=== PATIENT | female | born 1960 | race Caucasian/White ===

== ENCOUNTER 2019-05-05 10:01 | Emergency (ER) | payer BC, OTHER ==
--- OUTSIDE RECORDS SUMMARY | 2019-05-05 11:16 | XMS REPORT | Summary of Care ---
:1960 Author Organization [facility] Address [address] [address] Care Team Providers Name Role Phone Candice Lamar MD Primary Care Provider Reason for Referral MRI/CAT/PET Scan (Routine) Status Reason Specialty Diagnoses / Referred By Contact Referred To Procedures Contact Authorized Diagnoses Vaginal bleeding, abnormal Postmenopausal bleeding Uterine leiomyoma, unspecified location [place], Procedures US PELVIC COMPLETE WITH EV PROBE [place] [address] Reason for Visit Reason Comments Shoulder Pain radiates to neck and down chest Hematuria Encounter Details Date Type Department Care Team Description 05/05/2019 Office Visit [facility] [place], Precordial pain (Primary Dx); Practice Candice Sibley MD Hematuria, unspecified type; [address] [place] [address] Shortness of breath; [place], [place] [id number] [place] [address] Orthopnea; [phone] Postmenopausal bleeding; Uterine leiomyoma, unspecified location; Vaginal bleeding, abnormal Allergies Active Allergy Reactions Severity Noted Date Comments Tape: Silk Or Adhesive Rash Medium 05/11/2014 fur clipper leads Sulfamethoxazole Rash Medium 11/11/2013 W/Trimethoprim Penicillins Unknown Reaction 09/28/2007 Years ago,doesn't remember documented as of this encounter (statuses as of 05/05/2019) Medications Medication Sig Dispensed Refills Start End Date Status Date Ibuprofen (ADVIL PO) Take by mouth 0 Active NEEDED. Cholecalciferol Take 1 Tab by 0 Active (VITAMIN D) 2000 mouth DAILY. UNITS Oral Tab Multiple Take 1 Cap by 0 Active Vitamins-Minerals mouth DAILY. (VISION FORMULA/LUTEIN) Oral Tab diclofenac Take 1 Tab by 60 Tab 1 Active (VOLTAREN) 75 MG mouth TWICE 9 Oral Tab EC DAILY. lisinopril take 1 tablet 30 Tab 5 Active (PRINIVIL, ZESTRIL) by mouth once 9 5 MG Oral Tab daily Spacer/Aero Chamber 1 Units by 1 Units 1 05/05/20 Discontinued Mouthpiece Does not Does not apply 04 01 (Therapy apply route Completed) MiscIndications: DIRECTED. Use Wheezing with albuterol MDI Q4 hrs PRN albuterol HFA Take 2 Puffs 1 Each 1 05/05/20 Discontinued (VENTOLIN) 108 (90 by inhalation 9 (Therapy Base) MCG/ACT EVERY FOUR Completed) Inhalation Aero HOURS SolnIndications: NEEDED Wheezing (cough/wheezin g). documented as of this encounter (statuses as of 05/05/2019) Active Problems Problem Noted Date Dyslipidemia 03/28/2016 Elevated hemoglobin A1c 11/14/2014 BMI 38.0-38.9,adult 08/03/2012 Pulmonary nodule 11/30/2009 Essential hypertension 01/20/2008 Diffuse cystic mastopathy 07/25/1998 documented as of this encounter (statuses as of 05/05/2019) Resolved Problems Problem Noted Date Resolved Date Chronic renal disease, stage III 04/28/2014 11/06/2016 Lung anomaly 11/06/2016 Overview: SERGIO lung lesion, f/u Dr. Grayson. documented as of this encounter (statuses as of 05/05/2019) Immunizations Name Administration Dates Next Due Celestone (Bethamethesone) 6mg 05/17/2014 Influenza (IM) Preservative Free 03/28/2018, 03/28/2017 MMR VACCINE 03/04/2016 TDAP Vaccine 01/29/2011 documented as of this encounter Social History Tobacco Use Types Packs/Day Years Used Date Never Smoker Smokeless Tobacco: Never Used Comments: Mild passive smoking - smokes. Alcohol Use Drinks/Week oz/Week Comments Yes 0.0 2-3 beers/month Sex Assigned at Date Recorded Not on file Job Start Date Occupation Industry Not on file Not on file Not on file Travel History Travel Start Travel End No recent travel history available. documented as of this encounter Last Filed Vital Signs Vital Sign Reading Time Taken Comments Blood Pressure 122/80 05/05/2019 8:45 AM EDT Pulse 72 05/05/2019 8:45 AM EDT Temperature 37.2 05/05/2019 8:45 AM EDT C (99 F) Respiratory Rate - - Oxygen Saturation 99% 05/05/2019 8:45 AM EDT Inhaled Oxygen Concentration - - Weight 92.5 kg (204 lb) 05/05/2019 8:45 AM EDT Height 152.4 cm (5') 05/05/2019 8:45 AM EDT Body Mass Index 39.84 05/05/2019 8:45 AM EDT documented in this encounter Patient Instructions Patient InstructionsCandice Lamar MD - 05/05/2019 8:40 AM EDTER evaluation is recommended now. You refuse ambulance transport, deny chest pain now, and are driving yourself. You may be admitted for cardiac testing. I have called ahead to the ER to notify them you are coming Follow up with me after discharge for follow up and further evaluation of your other issues discussed today documented in this encounter Progress Notes Candice Lamar MD - 05/05/2019 8:40 AM EDT Nursing Notes: Tamika Agarwal LPN 05/05/2019 9:00 AM Signed Chief Complaint Patient presents with Shoulder Pain radiates to neck and down chest Hematuria Also c/o pressure/nausea feeling in upper chest/neck area after eating Chief Complaint: Tamika Olson is a 58-y.o. female who presents for shoulder pain that radiates to her neck and chest yesterday. She has hypertension and prediabetes, FH CAD History of Present Illness/ROS: Patient presents complaining of pain yesterday described as an ache in her left shoulder, fingers inboth hands tingled. It is not positional. No known shoulder injury. It does not hurt to sleep on that shoulder. Pain radiated to her left posterior neck and anterior chest. It lasted several minutes or more. Patient also reports upper chest pressure and nausea whenever she eats x several weeks. In addition at night she has problems breathing due to anterior chest pressure: has to sit up at night: Feels like a pressure in her chest. Has nausea with it. Short of breath going up stairs but not walking. Denies dyspnea with exertion or chest pain with exertion. Denies heartburn but has chest discomfort after eating. In addition she complains of: She has had some hematuria yesterday, a few specks of blood on her underwear. She suspect it may be vaginal. No fever or chills She did See obstetrics gynecology md oncology September 2017 for degenerating fibroids and bleeding and declined surgery, chose monitoring In April she had an ultrasound with slight endometrial thinckening for which I referred her to obstetrics gynecology md. Note from October from obstetrics gynecology md says the could not reach her. I last saw her December 01, 2018 for CAP, treatment with azithromycin. She reports her cough from November has never fully cleared. No hemoptysis. Review of Systems - General ROS: negative for - chills or fever ENT ROS: negative for - nasal congestion Respiratory ROS: positive for - shortness of breath when lying down, and dry cough since November negative for - hemoptysis Cardiovascular ROS: positive for - chest pain at night lying, yesterday after shoulder pain. No chest pain now/today. negative for - dyspnea on exertion or loss of consciousness Gastrointestinal ROS: no abdominal pain, change in bowel habits, or black or bloody stools Genito-Urinary ROS: positive for - hematuria negative for - dysuria Musculoskeletal ROS: left shoulder ached yesterday, suddenly, was not positional , was anterior left shoulder and radiated to her neck and anterior chest, resolved on its own. No pain today. Neurological ROS: had some tingling in her fingers bilateral hands, yesterday when she had shoulder pain Lab Results Component Value Date GLYCO 6.0 (H) 08/25/2018 GLYCO 5.7 11/06/2016 Office Visit on 08/25/2018 Component Date Value Ref Range Status Results 08/25/2018 SEE COMMENT Final Comment: GYNECOLOGICAL CYTOLOGY REPORT THINPREP TIS AND HPV mRNA E6/E7 Thinprep-TIS REPORT STATUS: FINAL CLINICAL INFORMATION: Information not provided LMP: AGE 55 SLIDES / SOURCE: 1 / Cervix, Endocervix STATEMENT OF ADEQUACY: Satisfactory for evaluation. Endocervical/transformation zone component absent. INTERPRETATION/RESULT: Negative for intraepithelial lesion or malignancy. Reactive cellular changes associated with repair. COMMENT: This Pap test has been evaluated with computer assisted technology. MANAGER PROVIDER RELATIONS: DEBORAH FLOYD(ASCP) For informational Purposes: All cytology specimens are processed and screened at [facility]. [address] [place] [id number] PATHOLOGIST: Asif Child MD, Board Certified in Anatomic Pathology and Cytopathology (electronic signature) For questions regarding this report call Anatomic Pathology at [phone] Asif Child MD, Line Maintenance [facility] [place], [place] The Pap is a screening test for cervical cancer. It is not a diagnostic test and is subject to false negative and false positive results. It is most reliable when a satisfactory sample, regularly obtained, is submitted with relevant clinical findings and history, and when the Pap result is evaluated along with historic and current clinical information. HPV mRNA E6/E7 HPV mRNA E6E7 Not Detected REFERENCE RANGE: NOT DETECTED This test was performed using the APTIMA HPV Assay ([employer] This assay detects E6/E7 viral messenger RNA (mRNA) from 14 high-risk HPV types (16,18,31,33,35,39,45,51,52,56,58,59,66,68). Cholesterol 08/25/2018 183 <200 mg/dl Final HDL Cholesterol 08/25/2018 44* >50 mg/dl Final Triglycerides 08/25/2018 160* <150 mg/dl Final LDL Cholesterol 08/25/2018 107* <100 MG/DL Final Cholesterol / HDL Ratio 08/25/2018 4.2 RATIO Final LDL / HDL Ratio 08/25/2018 2.4 Final Non-HDL Cholesterol 08/25/2018 139* 0 - 130 MG/DL Final Glycohemoglobin A1C 08/25/2018 6.0* <=5.6 % Final Normal*: <=5.6% Pre Diabetes* Risk: 5.7-6.4% Diabetes* Risk: >=6.5% Glycemic Goals for Adult Diabetes*: <7.0% *(Adult Ranges)[place] [employer], Standards of Medical Care in Diabetes, 2018 Sodium 08/25/2018 138 134 - 145 mmol/L Final Potassium 08/25/2018 4.7 3.5 - 5.1 mmol/L Final Chloride 08/25/2018 102 98 - 107 mmol/L Final CO2 08/25/2018 30 22 - 30 mmol/L Final Calcium 08/25/2018 10.2* 8.3 - 10.1 mg/dl Final Albumin 08/25/2018 4.1 3.5 - 5.0 g/dl Final BUN 08/25/2018 18* 7 - 17 mg/dl Final Creatinine 08/25/2018 0.8 0.7 - 1.2 mg/dl Final Glucose 08/25/2018 98 70 - 99 mg/dl Final Total Protein 08/25/2018 7.7 6.3 - 8.2 g/dl Final Total Bilirubin 08/25/2018 0.3 0.0 - 1.1 MG/DL Final AST 08/25/2018 26 15 - 46 U/L Final ALT 08/25/2018 31 9 - 52 U/L Final Alkaline Phosphatase 08/25/2018 55 40 - 150 U/L Final eGFR 08/25/2018 >60 See Interpretation Below ml/min/1.73ml Sq Final Estimated GFR Interpretation: Above 60ml/min/1.73m2 = Normal Renal Function 30-59 ml/min/1.73m2 = Stage 3 Chronic Kidney Disease 15-29 ml/min/1.73m2 = Stage 4 Chronic Kidney Disease Less than 15 ml/min/1.73m2 = Stage 5 Chronic Kidney Disease The GFR value is calculated using the Modification of Diet in Renal Disease ( MDRD) Study Equation which can be found at: https://www.kidney.org/content/bkze-ssdjh-uhyjwzzr BUN/Creatinine Ratio 08/25/2018 23* 6 - 22 RATIO Final Anion Gap 08/25/2018 6 3 - 11 mmol/L Final A/G Ratio 08/25/2018 1.1 0.8 - 2.0 ratio Final Past Medical History: Diagnosis Date Chronic kidney disease Low GFR once, normal since Diffuse cystic mastopathy 07/25/98 Hypertension 01/20/2008 Lung anomaly SERGIO lung lesion, f/u Dr. Owen. 11/2009- benign - no further follow up indicated. KORTNEY (obstructive sleep apnea) sleep study 09/2014 Postmenopausal , first Past Surgical History: Procedure Laterality Date CARPAL TUNNEL RELEASE 1989 CHOLECYSTECTOMY 1989 COLONOSCOPY 11/2016 negative Current Outpatient Medications: Cholecalciferol (VITAMIN D) 2000 UNITS Oral Tab, Take 1 Tab by mouth DAILY., Disp: , Rfl: diclofenac (VOLTAREN) 75 MG Oral Tab EC, Take 1 Tab by mouth TWICE DAILY., Disp: 60 Tab, Rfl: 1 Ibuprofen (ADVIL PO), Take by mouth NEEDED., Disp: , Rfl: lisinopril (PRINIVIL, ZESTRIL) 5 MG Oral Tab, take 1 tablet by mouth once daily, Disp: 30 Tab, Rfl: 5 Multiple Vitamins-Minerals (VISION FORMULA/LUTEIN) Oral Tab, Take 1 Cap by mouth DAILY., Disp: , Rfl: Allergies Allergen Reactions Adhesive [Tape: Silk Or Adhesive] Rash fur clipper leads Bactrim [Sulfamethoxazole W/Trimethoprim] Rash Pcn [Penicillins] Unknown Reaction Years ago,doesn't remember Social History Socioeconomic History Marital status: Spouse name: Not on file Number of children: Not on file Years of education: Not on file Highest education level: Not on file Occupational History Not on file Social Needs Financial resource strain: Not on file Food insecurity: Worry: Not on file Inability: Not on file Transportation needs: Medical: Not on file Non-medical: Not on file Tobacco Use Smoking status: Never Smoker Smokeless tobacco: Never Used Tobacco comment: Mild passive smoking - smokes. Substance and Sexual Activity Alcohol use: Yes Alcohol/week: 0.0 standard drinks Comment: 2-3 beers/month Drug use: No Sexual activity: Yes Partners: Male Lifestyle Physical activity: Days per week: Not on file Minutes per session: Not on file Stress: Not on file Relationships Social connections: Talks on phone: Not on file Gets together: Not on file Attends jain service: Not on file Active member of club or organization: Not on file Attends meetings of clubs or organizations: Not on file Relationship status: Not on file Intimate partner violence: Fear of current or ex partner: Not on file Emotionally abused: Not on file Physically abused: Not on file Forced sexual activity: Not on file Other Topics Concern Back Care Not Asked Bike Helmet Not Asked Blood Transfusions Not Asked Caffeine Concern Not Asked Exercise Yes Comment: yoga Hobby Hazards Not Asked International Travel Not Asked Service Not Asked Occupational Exposure Not Asked Seat Belt Not Asked Self-Exams Not Asked Sleep Concern Yes Special Diet No Stress Concern Not Asked Weight Concern Yes Social History Narrative Employed- [employer] Lives with , college son Pets: dogs,cat, bird,goats Family History Problem Relation Age of Onset Heart Mother 57 Hypertension Mother High Cholesterol Mother Diabetes Mother Stroke Mother Multiple Sclerosis Mother Heart Father Hypertension Father High Cholesterol Father No Known Problems Sister No Known Problems Son Colon Cancer Maternal Grandfather Cancer Maternal Grandfather colon cancer Diabetes Maternal Grandmother Hypertension Paternal Grandfather Stroke Paternal Grandfather Cancer Paternal Grandmother multiple myeloma PHYSICAL EXAMINATION: BP 122/80 (BP Location: Right arm, Patient Position: Sitting) | Pulse 72 | Temp 99 F (37.2 C) (Tympanic) | Ht 5' (1.524 m) | Wt 204 lb (92.5 kg) | LMP 10/27/2013 | SpO2 99% | ? No | BMI 39.84 kg/m Physical Examination: General appearance - alert, well appearing, and in no distress Mental status - alert, oriented to person, place, and time, normal mood, behavior, speech, dress, motor activity, and thought processes Eyes - pupils equal and reactive, extraocular eye movements intact, sclera anicteric Neck - supple, no cervical or supraclavicular adenopathy, carotids upstroke normal bilaterally, no bruits, thyroid exam: thyroid is normal in size without nodules or tenderness, no neck masses palpated. Chest/Lungs - right lower lobe crackles, otherwise good aeration, no wheezing, no chest wall pain. Heart - normal rate, regular rhythm, normal S1, S2, no murmurs, rubs, clicks or gallops Abdomen - soft, non tender on palpation, nondistended, no masses or hepatosplenomegaly, bowel soundsnormal, normal to percussion, no guarding or rebound. No costervertebral angle tenderness Neurological - alert, oriented, normal speech, no gross focal findings or movement disorder noted Extremities - dorsalis pedis pulses normal, no pedal edema, no clubbing or cyanosis No shoulder pain, FROM ASSESSMENT/PLAN: ICD-9-CM ICD-10-CM 1. Precordial pain 786.51 R07.2 AMBULATORY 12 LEAD EKG (GLOBAL) 2. Hematuria, unspecified type 599.70 R31.9 URINE DIP MANUAL (AMB POCT) URINE DIP MANUAL (AMB POCT) 3. Shortness of breath 786.05 R06.02 AMBULATORY 12 LEAD EKG (GLOBAL) 4. Orthopnea 786.02 R06.01 AMBULATORY 12 LEAD EKG (GLOBAL) 5. Postmenopausal bleeding 627.1 N95.0 US PELVIC COMPLETE WITH EV PROBE 6. Uterine leiomyoma, unspecified location 218.9 D25.9 US PELVIC COMPLETE WITH EV PROBE 7. Vaginal bleeding, abnormal 623.8 N93.9 US PELVIC COMPLETE WITH EV PROBE pulmonary embolism Wells score is 0 ASCVD risk is 3.6% Cardiac risk factors FH is sig for CAD and strent in her mother at this age, father also had CAD She has never smoked LDL cholesterol is 107, HDL 44 ECG: NSR, rate 66, old septal infarct similar to ECG in 2014 but T wave is biphasic in V1, more upright in V2, perhaps [address] elevation in V5, subtle changes. No significant ST depressions or elevations, no new q waves. Symptoms are concerning for angina over the last few weeks. She denies chest pain now but did have chest pain yesterday. I recommend ER evaluation for quicker work up with cardiac enzymes, chest xray, ECG, probable admission and cardiac testing. Ambulance strongly recommended. She absolutely refuses transport by ambulance and is driving to the ER. She has no other hi lo driver. She again declines ambulance, denies symptoms today I called and spoke to Dr Lopez, ER physician and notified emergency room patient is coming in. She also has right lower lobe crackles and cough, will need chest xray. Regarding vaginal spotting, she will need a UA and pelvic ultrasound after cardiac status is clarified. She admits she never saw the longwall shearer operator after I referred her last April, did talk to them in August and November of this year, but never went in for appointment. Author: Candice Lamar MD 05/05/2019 09:48 documented in this encounter Plan of Treatment Name Type Priority Associated Diagnoses Order Schedule URINE DIP MANUAL (AMB POCT Routine Hematuria, unspecified Ordered: 2018 POCT) type AMBULATORY 12 LEAD EKG EKG Routine Precordial pain Ordered: 05/05/2019 (GLOBAL) Shortness of breath Orthopnea URINE DIP MANUAL (AMB POCT Routine Hematuria, unspecified Ordered: 2018 POCT) type US PELVIC COMPLETE WITH Imaging Routine Vaginal bleeding, Expected: 2018, EV PROBE abnormal Expires: 05/04/2020 Postmenopausal bleeding Uterine leiomyoma, unspecified location Health Maintenance Due Date Last Done Comments ZOSTER IMMUNIZATION SERIES 2011 (1 of 2) INFLUENZA VACCINE (#1) 2019 03/28/2018, 03/28/2017 DIABETES SCREENING 08/25/2019 08/25/2018, 08/25/2018, 08/14/2017, Additional history exists LIPID DISORDER SCREENING 08/25/2019 08/25/2018, 11/06/2016, 02/21/2016, Additional history exists DEPRESSION SCREENING 12/02/2019 12/01/2018, 03/28/2017 MAMMOGRAM (SCREENING) 02/04/2020 02/03/2019, 04/23/2017, 04/28/2014, Additional history exists PAP SMEAR 08/25/2021 08/25/2018, 08/01/2015, 08/01/2015, Additional history exists COLONOSCOPY SCREENING 12/11/2026 12/11/2016, 11/11/2013 (Declined) HPV IMMUNIZATION SERIES Aged Out No longer eligible based on patient's age to complete this topic MENINGOCOCCAL VACCINE IMM Aged Out No longer eligible based on patient's age to complete this topic PNEUMOCOCCAL 0-64 YRS Aged Out No longer eligible based on patient's age to complete this topic documented as of this encounter Goals Goal Patient Goal Associated Recent Patient-Stated? Author Type Problems Progress Blood Pressure Blood Pressure 122/80 No Ness, < 140/90 (05/05/2019 Maldonado 8:45 AM EDT) MD Angel Note: This is an individualized treatment (blood pressure) goal for Tamika Olson: Displayed above (on the left) is your goal for blood pressure control. Your most recent blood pressure is also shown above, on the right. You should try to achieve blood pressures that are lower than your goal listed above (on the left). Depression screen Depression 8 (03/28/2017 8:01 AM No Candice Lamar (PHQ-9) total score < 5 EDT) MD Toñito Note: This is an individualized treatment (depression) goal for Tamika Olson: Displayed above is your goal for a depression screening (PHQ-9) score that would indicate good control of your depression. Weight loss vs. 18 mo Lifestyle 1.2 (05/05/2019 8:45 AM No Maldonado Ness max (lbs) >= 10 EDT) MD Angel Note: This is an individualized lifestyle goal for Tamika Olson: Your body mass index (BMI) is more than 30. You should lose weight. A reasonable starting goal is to lose 10 pounds. Displayed above is how many pounds you have lost thus far towards your 10 pound weight loss goal. Keep a regular sleep schedule Lifestyle No Candice Lamar MD Note: This is an individualized lifestyle goal for Tamika Olson: Please maintain a regular sleep schedule. This may help with some symptoms of depression. Take all prescribed medications as Self-management No Maldonado Ness MD directed Note: This is an individualized self-management goal for Tamika Olson: Please take all prescribed medications as directed. 1. Do not skip doses. If you cannot afford your medications, talk with your doctor. 2. Use a pill reminder system such as a pill box if needed. Your pharmacist can help you with this. 3. Contact your Pharmacy 5 days before your medication runs out. If you cannot take your medications for any reasons, talk with your doctor. 4. Please bring all of your medication bottles and inhalers (or a list of all your medications/inhalers) with you to every visit. Potential barriers to meeting all of your care plan goals will continue to be addressed on an ongoing basis. documented as of this encounter Results Not on filedocumented in this encounter Visit Diagnoses Diagnosis Precordial pain - Primary Hematuria, unspecified type Shortness of breath Orthopnea Postmenopausal bleeding Uterine leiomyoma, unspecified location Vaginal bleeding, abnormal Other specified noninflammatory disorder of vagina documented in this encounter Guarantor Name Account Type Relation to Date of Phone Billing Patient Address Tamika Olson Personal/Family 1960 [phone] (Home) [facility] [phone] [place], [place] (Work) [id number] documented as of this encounter Advance Directives Type Date Recorded Patient Lowerator Operator Explanation Advance Directives 12/23/2016 11:16 AM Health Care Proxy"
[2019-05-05 11:23] LABS: ABS Eosinophils 0.2 10^3/ul (0-0.6); ABS Lymphocytes 2.3 10^3/ul (1.0-4.8); ABS Monocytes 0.5 10^3/ul (0-0.8); ABS Neutrophils 2.7 10^3/ul (1.5-7.7); Eosinophil % 3.7 %; Hematocrit 41 % (35-47); Hemoglobin 14.1 g/dL (12.0-16.0); Lymphocyte % 40.1 %; Mean Corpuscular HGB Conc 35 g/dL (31-36); Mean Corpuscular Hemoglobin 30 pg (27-31); Mean Corpuscular Volume 86 fL (80-97); Mean Platelet Volume 8.2 fL (7.4-10.4); Platelet Count 212 10^3/uL (150-450); Red Blood Count 4.78 10^6 /uL (3.70-4.87); Red Cell Distribution Width 13 % (10-15); White Blood Count 5.6 10^3/uL (3.5-10.8)
[2019-05-05] MEDS: Al Hydrox/Mg Hydrox/Simet LIQ* 30 ML UDC PO ONE (11:28)
[2019-05-05 11:30] LABS: INR 1.08 (0.82-1.09)
[2019-05-05 11:40] LABS: Albumin 4.2 g/dL (3.2-5.2); Albumin/Globulin Ratio 1.4 (1-3); BUN/Creatinine Ratio 25.6 (8-20); Calcium 9.5 mg/dL (8.6-10.3); EGFR African American 82.3 (>60); Globulin 2.9 g/dL (2-4); Total Bilirubin 0.4 mg/dL (0.2-1.0); Total Protein 7.1 g/dL (6.4-8.9)
[2019-05-05 13:33] VITALS: BP 151/86
--- NOTE | 2019-05-05 16:30 | ED ---
HPI Cardiac - HPI Summary HPI Summary: This patient is a 58-year-old otherwise healthy female presenting to the ED with upper chest, nausea and neck pain worse with lying supine/flat, better with sitting upright. She states symptoms have been present times approximately one week. She was able to call her doctor, but decided to come to the ED. She denies any cardiac history other than mild hypertension in which she takes lisinopril. She denies any history of anxiety, excessive caffeine use, no alcohol use and is a nonsmoker. She denies any history of GERD. Symptoms are described as a ache and a pressure onto the upper portion of her chest, radiating up into her neck, without radiation to her back. She denies any associated shortness of breath. - History of Current Complaint Chief Complaint: EDNeckComplaint Stated Complaint: NECK PAIN , SHOULDER PAIN Time Seen by Provider: 05/05/19 10:25 Hx Obtained From: Patient Onset/Duration: Started Hours Ago Timing: Constant Initial Severity: Moderate Current Severity: Moderate Pain Intensity: 3 Pain Scale Used: 0-10 Numeric Chest Pain Location: Diffuse Chest Pain Radiates: No Aggravating Factor(s): Nothing Alleviating Factor(s): Nothing Associated Signs and Symptoms: Positive: Chest Pain, Nausea. Negative: Vision Changes, Anxiety, Recent Stress, Headaches, Numbness, Tingling, Fever, Chills, Vomiting - Risk Factors Pulmonary Embolism Risk Factors: Negative Cardiac Risk Factors: Negative Atrial Fibrillation Risk Factors: Negative TAD Risk Factors: Negative - Allergy/Home Medications Allergies/Adverse Reactions: Allergies Allergy/AdvReac Type Severity Reaction Status Date / Time Penicillins Allergy Unknown Verified 05/05/19 10:08 Reaction Details sulfamethoxazole Allergy Rash Verified 05/05/19 10:08 [From Bactrim] trimethoprim [From Bactrim] Allergy Rash Verified 05/05/19 10:08 Home Medications: Home Medications Lisinopril TAB* [Prinivil TAB*] 5 mg PO DAILY 05/05/19 [History Confirmed ] PMH/Surg Hx/FS Hx/Imm Hx Previously Healthy: Yes - Immunization History Hx Pertussis Vaccination: No Immunizations Up to Date: Yes Infectious Disease History: No Infectious Disease History: Denies: Traveled Outside the [place] in Last 30 Days - Social History Occupation: Employed Full-time Lives: With Family Alcohol Use: None Hx Substance Use: No Substance Use Type: Reports: None Hx Tobacco Use: No Smoking Status (MU): Never Smoked Tobacco Review of Systems Constitutional: Negative Negative: Fever, Chills, Skin Diaphoresis Negative: Palpitations, Chest Pain Negative: Shortness Of Breath, Cough Genitourinary: Negative Positive: no symptoms reported, see HPI Negative: Arthralgia, Myalgia Negative: Rash, Bruising Neurological: Negative All Other Systems Reviewed And Are Negative: Yes Physical Exam Triage Information Reviewed: Yes Vital Signs On Initial Exam: Initial Vitals Temp Pulse Resp BP Pulse Ox 97.4 F 65 16 151/90 99 05/05/19 10:03 05/05/19 10:03 05/05/19 10:03 05/05/19 10:03 05/05/19 10:03 Vital Signs Reviewed: Yes Appearance: Positive: Well-Appearing, Well-Nourished Skin: Positive: Warm, Skin Color Reflects Adequate Perfusion Head/Face: Positive: Normal Head/Face Inspection Eyes: Positive: EOMI, SUNIL, Conjunctiva Clear Neck: Positive: Supple, No Lymphadenopathy Respiratory/Lung Sounds: Positive: Clear to Auscultation, Breath Sounds Present Cardiovascular: Positive: RRR, Pulses are Symmetrical in both Upper and Lower Extremities Musculoskeletal: Positive: Strength/ROM Intact Neurological: Positive: Sensory/Motor Intact, Alert, Oriented to Person Place, Time, Speech Normal Psychiatric: Positive: Normal, Affect/Mood Appropriate Procedures - Sedation Patient Received Moderate/Deep Sedation with Procedure: No Diagnostics - Vital Signs Vital Signs Temp Pulse Resp BP Pulse Ox 05/05/19 13:31 98.2 F 76 16 151/86 97 05/05/19 13:00 21 05/05/19 12:00 13 05/05/19 11:23 60 12 141/96 99 05/05/19 11:11 13 161/79 05/05/19 11:00 60 10 97 05/05/19 10:52 66 16 161/79 99 05/05/19 10:22 61 13 133/90 97 05/05/19 10:21 12 05/05/19 10:03 97.4 F 65 16 151/90 99 - Laboratory Lab Results: Lab Results 05/05/19 05/05/19 05/05/19 Range/Units 11:15 11:15 11:15 WBC 5.6 (3.5-10.8) 10^3/uL RBC 4.78 (3.70-4.87) 10^6 /uL Hgb 14.1 (12.0-16.0) g/dL Hct 41 (35-47) % MCV 86 (80-97) fL MCH 30 (27-31) pg MCHC 35 (31-36) g/dL RDW 13 (10-15) % Plt Count 212 (150-450) 10^3/uL MPV 8.2 (7.4-10.4) fL Neut % (Auto) 47.1 % Lymph % (Auto) 40.1 % [place] % (Auto) 8.7 % Eos % (Auto) 3.7 % Baso % (Auto) 0.4 % Absolute Neuts (auto) 2.7 (1.5-7.7) 10^3/ul Absolute Lymphs (auto) 2.3 (1.0-4.8) 10^3/ul Absolute Monos (auto) 0.5 (0-0.8) 10^3/ul Absolute Eos (auto) 0.2 (0-0.6) 10^3/ul Absolute Basos (auto) 0.0 (0-0.2) 10^3/ul Absolute Nucleated RBC 0.0 10^3/ul Nucleated RBC % 0.0 INR (Anticoag Therapy) 1.08 (0.82-1.09) D-Dimer, Quantitative (Less Than 230) ng/mL Sodium 138 (135-145) mmol/L Potassium 4.0 (3.5-5.0) mmol/L Chloride 103 (101-111) mmol/L Carbon Dioxide 28 (22-32) mmol/L Anion Gap 7 (2-11) mmol/L BUN 22 (6-24) mg/dL Creatinine 0.86 (0.51-0.95) mg/dL Est GFR ( Amer) 82.3 (>60) Est GFR (Non-Af Amer) 68.0 (>60) BUN/Creatinine Ratio 25.6 H (8-20) Glucose 92 (70-100) mg/dL Calcium 9.5 (8.6-10.3) mg/dL Total Bilirubin 0.40 (0.2-1.0) mg/dL AST 19 (13-39) U/L ALT 24 (7-52) U/L Alkaline Phosphatase 58 (34-104) U/L Troponin I 0.00 (<0.04) ng/mL Total Protein 7.1 (6.4-8.9) g/dL Albumin 4.2 (3.2-5.2) g/dL Globulin 2.9 (2-4) g/dL Albumin/Globulin Ratio 1.4 (1-3) 05/05/19 Range/Units 11:15 WBC (3.5-10.8) 10^3/uL RBC (3.70-4.87) 10^6 /uL Hgb (12.0-16.0) g/dL Hct (35-47) % MCV (80-97) fL MCH (27-31) pg MCHC (31-36) g/dL RDW (10-15) % Plt Count (150-450) 10^3/uL MPV (7.4-10.4) fL Neut % (Auto) % Lymph % (Auto) % [place] % (Auto) % Eos % (Auto) % Baso % (Auto) % Absolute Neuts (auto) (1.5-7.7) 10^3/ul Absolute Lymphs (auto) (1.0-4.8) 10^3/ul Absolute Monos (auto) (0-0.8) 10^3/ul Absolute Eos (auto) (0-0.6) 10^3/ul Absolute Basos (auto) (0-0.2) 10^3/ul Absolute Nucleated RBC 10^3/ul Nucleated RBC % INR (Anticoag Therapy) (0.82-1.09) D-Dimer, Quantitative < 200 (Less Than 230) ng/mL Sodium (135-145) mmol/L Potassium (3.5-5.0) mmol/L Chloride (101-111) mmol/L Carbon Dioxide (22-32) mmol/L Anion Gap (2-11) mmol/L BUN (6-24) mg/dL Creatinine (0.51-0.95) mg/dL Est GFR ( Amer) (>60) Est GFR (Non-Af Amer) (>60) BUN/Creatinine Ratio (8-20) Glucose (70-100) mg/dL Calcium (8.6-10.3) mg/dL Total Bilirubin (0.2-1.0) mg/dL AST (13-39) U/L ALT (7-52) U/L Alkaline Phosphatase (34-104) U/L Troponin I (<0.04) ng/mL Total Protein (6.4-8.9) g/dL Albumin (3.2-5.2) g/dL Globulin (2-4) g/dL Albumin/Globulin Ratio (1-3) Result Diagrams: 05/05/19 11:15 05/05/19 11:15 Lab Statement: Any lab studies that have been ordered have been reviewed, and results considered in the medical decision making process. Disposition - Course Course Of Treatment: Patient is evaluated for chest pain radiating to the neck with associated nausea worse with lying flat times approximate 2 weeks. No history of GERD. No history of CAD. On arrival into the ED, the patient appears well, she is asymptomatic at this time. She denies any nausea, chest pain, neck pain. Patient is sitting upright, nondiaphoretic and nontoxic in appearing. Labs obtained and are WNL. D-dimer < 200. Troponin 0.00. Chest x- ray obtained: The shows normal sinus rhythm. Patient has no pain on palpation to the chest wall, neck. Denies any pain to the jaw. Denies any shortness of breath. She is afebrile, vital signs are stable and she is satting at 99% on room air. Discussed with the patient, treatment options and close follow-up. Discussed with patient this appears to be consistent with GERD and will treat as such, however she will follow-up with PCP. She is instructed to take omeprazole 20 mg once daily 30 days. However, if in approximate 10 days, the patient feels no improvement, she will be discontinued this medication. She states she will follow-up with her PCP within the next week. HEART SCORE = 0. - Differential Dx - Cardiopulmonary Differential Diagnoses - Cardiopulmonary: Other - GERD, CHEST PAIN, ANGINA, SOB , CHF - Diagnoses Provider Diagnoses: Atypical chest pain Discharge ED - Sign-Out/Discharge Documenting (check all that apply): Patient Departure - Discharge Plan Condition: Stable Disposition: HOME Prescriptions: Omeprazole CAP (NF) [Prilosec CAP* 20 MG] 20 mg PO DAILY #30 cap. Patient Education Materials: Gastroesophageal Reflux Disease (ED) Referrals: Candice Lamar MD [Medical Doctor] - 3 Days Additional Instructions: Please follow up with PCP I have given you omeprazole Once daily (20mg) x 30 days If any symptoms become worse - return to the ED - Billing Disposition and Condition Condition: STABLE Disposition: Home - Attestation Statements Provider Attestation: I was available for consultation for this patient. I did not evaluate the patient or participate in any medical decision making or disposition decisions unless I am specifically named in the chart as having consulted on the patient. If I have consulted on the patient, please see my own ED note on the patient encounter. Charli Villalobos MD
== END 2019-05-05 13:26 | disposition home or self-care (01) ==
LOC: ED 10:01
DX: R07.89 Other chest pain (principal); Z79.899 Other long term (current) drug therapy; Z88.1 Allergy status to other antibiotic agents; Z88.0 Allergy status to penicillin; Z88.2 Allergy status to sulfonamides
CPT/HCPCS: 36415; 71046; 80053; 84484; 85025; 85379; 85610; 93005; 99283; A9270-GY